=== PATIENT | male | born 2000 | race Caucasian/White ===

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

== ENCOUNTER 2024-08-28 17:42 | Emergency (ER) | payer MEDICAID ==
[~2024-08-28] VITALS: Ht 177.8 cm; Wt 69.0 kg
[2024-08-28 17:44] VITALS: O2SAT 98
[2024-08-28 17:48] VITALS: BP 120/74; PULSE 88; RESP 18; TEMP 37.2; O2SAT 100
[2024-08-28 19:15] LABS: CLARITY URINE CLOUDY (CLEAR); GLUCOSE URINE NEGATIVE (NEGATIVE); KETONES URINE NEGATIVE (NEGATIVE); LEUKOCYTE ESTERASE URINE 3+ (NEGATIVE); NITRITE URINE NEGATIVE (NEGATIVE); OCCULT BLOOD URINE TRACE (NEGATIVE); PH URINE 7.5 (4.5-8.0); PROTEIN URINE 1+ (NEGATIVE); SPECIFIC GRAVITY URINE 1.022 (1.005-1.030)
[2024-08-28 19:34] LABS: COLOR URINE STRAW (YELLOW); WBC URINE TNTC /hpf (0-2)
[2024-08-28 19:35] LABS: BACTERIA URINE TRACE; MUCUS URINE TRACE /lpf (NONE/TRACE); RBC URINE NONE SEEN /hpf (0-2); SQUAMOUS EPITHELIAL CELL URINE RARE /lpf (RARE/1+)
== END 2024-08-28 18:53 | disposition left against medical advice (07) ==
LOC: ER 17:42
DX: R30.0 Dysuria (principal); R07.81 Pleurodynia; J45.909 Unspecified asthma, uncomplicated; Z53.21 Procedure and treatment not carried out due to patient leaving prior to being seen by health care provider
CPT/HCPCS: 71101; 81003; 87491; 87591

== ENCOUNTER 2024-09-04 22:32 | Emergency (ER) | payer MEDICAID ==
[~2024-09-04] VITALS: Ht 177.8 cm; Wt 64.5 kg
[2024-09-04 22:34] VITALS: O2SAT 99
[2024-09-04 23:00] LABS: CLARITY URINE CLEAR (CLEAR); COLOR URINE YELLOW (YELLOW); GLUCOSE URINE NEGATIVE (NEGATIVE); KETONES URINE NEGATIVE (NEGATIVE); LEUKOCYTE ESTERASE URINE 1+ (NEGATIVE); NITRITE URINE NEGATIVE (NEGATIVE); OCCULT BLOOD URINE NEGATIVE (NEGATIVE); PH URINE 5.5 (4.5-8.0); PROTEIN URINE NEGATIVE (NEGATIVE); SPECIFIC GRAVITY URINE 1.029 (1.005-1.030)
[2024-09-04 23:14] LABS: BACTERIA URINE TRACE; RBC URINE NONE SEEN /hpf (0-2); SQUAMOUS EPITHELIAL CELL URINE RARE /lpf (RARE/1+)
[2024-09-04 23:27] LABS: BASOPHILS % 0.6 % (0.0-2.0); EOSINOPHILS % 3.1 % (0.0-5.0); HEMATOCRIT. 41.2 % (42.0-52.0); HEMOGLOBIN. 14.6 g/dL (14.0-18.0); LYMPHOCYTES % 37.6 % (20.0-50.0); MEAN CORPUSCULAR HEMOGLOBIN 34.9 pg (28.0-32.0); MEAN CORPUSCULAR HGB CONC 35.5 g/dL (31.0-37.0); MEAN CORPUSCULAR VOLUME 98.5 fL (80.0-94.0); MEAN PLATELET VOLUME 8.3 fl (7.4-10.4); MONOCYTES % 11.1 % (2.0-8.0); NEUTROPHILS % 47.6 % (40.0-76.0); PLATELET 340 x1000/uL (130-400); RED BLOOD CELL COUNT 4.18 mill/uL (4.7-6.1); RED CELL DISTRIBUTION WIDTH 13.2 % (11.6-14.6); WHITE BLOOD COUNT 5.2 x1000/uL (4.5-11.0)
[2024-09-04] MEDS: LIDOCAINE HCL/PF 1% 10 MG/ML 5ML VIAL INFIL ONE (23:45)
[2024-09-04 23:46] LABS: CHLORIDE 105 mEq/L (98-107); POTASSIUM 3.9 mEq/L (3.5-5.1); SODIUM 141 mEq/L (136-145)
[2024-09-04 23:47] LABS: CARBON DIOXIDE 30 mEq/L (21-32)
[2024-09-04 23:48] LABS: CALCIUM 9.6 mg/dL (8.7-10.4)
[2024-09-04 23:52] LABS: CREATININE 0.8 mg/dL (0.6-1.3); GLUCOSE 160 mg/dL (70-105)
[2024-09-04 23:53] LABS: UREA NITROGEN BLOOD 14 mg/dL (9-23)
[2024-09-04 23:54] LABS: ALANINE AMINOTRANSFERASE 19 IU/L (10-49); ALBUMIN 4.5 g/dL (3.2-4.8); ASPARTATE AMINOTRANSFERASE 28 IU/L (<34)
[2024-09-04 23:55] LABS: BILIRUBIN DIRECT 0.1 mg/dL (<=3.0); BILIRUBIN TOTAL 0.4 mg/dL (0.1-1.0); PROTEIN TOTAL 6.9 g/dL (6.0-8.3)
[2024-09-05] MEDS: KETOROLAC 15MG/ML VIAL IM ONE (00:13)
[2024-09-05] MEDS: CEFTRIAXONE SODIUM 500MG VIAL IM ONE (00:14)
[2024-09-05] MEDS ORDERED: DOXY150T8 MT (01:53)
[2024-09-05 02:13] VITALS: BP 113/63; PULSE 74; RESP 20; TEMP 36.5; O2SAT 100
== END 2024-09-05 02:23 | disposition home or self-care (01) ==
LOC: ER 22:32
DX: K59.00 Constipation, unspecified (principal); A64 Unspecified sexually transmitted disease; J45.909 Unspecified asthma, uncomplicated; Z79.51 Long term (current) use of inhaled steroids; F10.90 Alcohol use, unspecified, uncomplicated; F12.90 Cannabis use, unspecified, uncomplicated; Y90.9 Presence of alcohol in blood, level not specified
CPT/HCPCS: 80076; 80048; 81003; 85025; 86850; 86900; 86901; 36415; 74176; 99285; 96372; J0696; J1885; J2003; Z7610

== ENCOUNTER 2024-09-06 12:29 | Emergency (ER) | payer MEDICAID ==
[~2024-09-06] VITALS: Ht 172.7 cm; Wt 63.0 kg
[~2024-09-06 12:29] MED LIST changes: +DOXY150T8 MT
[2024-09-06 12:35] VITALS: BP 148/100; TEMP 37.2; O2SAT 100
[2024-09-06] MEDS: DIAZEPAM 5 MG TABLET PO ONE (13:02)
[2024-09-06 15:00] VITALS: PULSE 82; RESP 18
== END 2024-09-06 15:20 | disposition home or self-care (01) ==
LOC: ER 12:29
DX: F15.90 Other stimulant use, unspecified, uncomplicated (principal); R06.02 Shortness of breath; F12.10 Cannabis abuse, uncomplicated; J45.909 Unspecified asthma, uncomplicated; Z79.899 Other long term (current) drug therapy
CPT/HCPCS: 71045; 82962; 93005; 99283